=== PATIENT | male | born 1975 | race Caucasian/White ===

== ENCOUNTER 2019-01-08 12:09 | Emergency (ER) | payer OTHER | END 2019-01-08 13:57 | disposition home or self-care (01) | LOC: FER 12:09 ==

== ENCOUNTER 2019-01-11 23:41 | Emergency (ER) | payer OTHER ==
[2019-01-11 23:47] VITALS: BP 149/110; PULSE 94; TEMP 98.3; BMI 28.8
--- NOTE | 2019-01-11 23:50 | PDOC ---
History of Present Illness - General Chief Complaint: Pain Stated Complaint: LEFT THUMB SWELLING Time Seen by Provider: 01/11/19 23:45 History Source: Patient Exam Limitations: No Limitations - History of Present Illness Initial Comments: 01/11/19 23:52 This is a 43-year-old male who had a paronychia that his primary care doctor started him on doxycycline for. Patient was seen and evaluated in this ED on Saturday and the paronychia was incised and drained and he is antibiotics were switched to Keflex and Bactrim. Patient's culture grew out MRSA and he now returns for minimal improvement in his symptoms and IV antibiotics. Patient said he was sent here by his primary care doctor for the IV antibiotics. He denies any fever, chills or any other systemic symptoms. Patient was also given follow-up with the hand surgeon. Allergies: as per nursing notes Past Medical History: none Social history: Lives with family. No smoking. No alcohol. No illicit drugs. Surgical history: None General: No fevers or chills, no weakness, no weight loss HEENT: No change in vision. No sore throat,. No ear pain CardioVascular: no chest discomfort. No shortness of breath Respiratory:No cough, or wheezing. Gastrointestinal: no nausea, vomiting, diarrhea or constipation, No rectal bleeding Genitourinary: No dysuria, hematuria, or frequency Musculoskeletal: No joint or muscle pain or swelling Neurologic: No headache, vertigo, dizziness or loss of consciousness Psychiatric: nor depression Skin: Paronychia of the thumb as per history of present illness Endocrine: no increased thirst or abnormal weight change Allergic: no skin or latex allergy All other systems reviewed and normal GENERAL: The patient is awake, alert, and fully oriented, in no acute distress. HEAD: Normal with no signs of trauma. EYES: Pupils equal, round and reactive to light, extraocular movements intact, sclera anicteric, conjunctiva clear. EXTREMITIES:atraumatic, Normal range of motion, no edema. Left thumb: There is some induration, swelling, increased warmth to the left thumb. There is no palpable collection. NEUROLOGICAL: Normal speech, normal gait. PSYCH: Normal mood, normal affect. SKIN: Warm, Dry, normal turgor, no rashes or lesions noted. Assessment and plan: This is a 43-year-old male with MRSA in a paronychia that was incised and drained 2 days ago and minimally improved. Well sent CBC and give patient an IV dose of vancomycin Past History - Past Medical History Allergies/Adverse Reactions: Allergies Allergy/AdvReac Type Severity Reaction Status Date / Time No Known Allergies Allergy Verified 01/11/19 23:43 Home Medications: Ambulatory Orders Cephalexin [Keflex] 500 mg PO TID #21 capsule 01/08/19 Esomeprazole Magnesium [Nexium 24Hr] 20 mg PO DAILY 01/08/19 Sulfamethoxazole/Trimethoprim [Bactrim Ds -] 1 tab PO BID #14 tablet 01/08/19 COPD: No CHF: No GI Disorders: Yes (GERD) HTN: Yes - Immunization History Immunization Up to Date: (Tetanus December 2018) - Suicide/Smoking/Psychosocial Hx Smoking History: Never smoked Have you smoked in the past 12 months: No Information on smoking cessation initiated: No Hx Alcohol Use: No Drug/Substance Use Hx: No *Physical Exam - Vital Signs Last Vital Signs Temp Pulse Resp BP Pulse Ox 98.3 F 94 H 18 149/110 H 97 01/11/19 23:43 01/11/19 23:43 01/11/19 23:43 01/11/19 23:43 01/11/19 23:43 *DC/Admit/Observation/Transfer Diagnosis at time of Disposition: Paronychia, MRSA (methicillin resistant staph aureus) culture positive - Discharge Dispostion Disposition: HOME Decision to Admit order: No - Referrals Referrals: Alphonso Keen MD [Staff Physician] - - Patient Instructions Additional Instructions: Continue to take antibiotics you're on. Dr. Garcia in the morning and get an appointment as soon as possible to follow- up. To Dr. Keen you were in the emergency department twice over the weekend and we wanted you seen by him as soon as possible. Return to the emergency department immediately with ANY new, persistent or worsening symptoms. Continue any medications as previously prescribed by your physician. You should follow up with your primary doctor as soon as possible regarding today's emergency department visit. . Please make sure your doctor reviews the results of your emergency evaluation. Thank you for coming to the Emergency Department today for your care. It was a pleasure to see you today. Please note that your evaluation is INCOMPLETE until you follow-up with your doctor. - Post Discharge Activity
[2019-01-11] MEDS ORDERED: VANCOMYCIN 1 GM in D5W (PRE-DOCKED) 1,000 MG/250 ML IVPB ONE (23:52)
[2019-01-12] MEDS ORDERED: VANCOMYCIN 1,000 MG VIAL (RESTRICTED TO ID ONLY) ONE (00:13)
[2019-01-12] MEDS ORDERED: KETOROLAC TROMETHAMINE 30 MG/1 ML VIAL IVPUSH ONE (01:03)
[2019-01-12] MEDS ORDERED: KETOROLAC TROMETHAMINE 30 MG/1 ML VIAL ONE (01:08)
[2019-01-12 01:37] LABS: BASO % 0.7 % (0-2.0); EOS % 2.1 % (0-4.5); HEMATOCRIT 45.2 % (35.4-49); HEMOGLOBIN 15.4 GM/dL (11.7-16.9); MCH 33.2 pg (25.7-33.7); MEAN CELL VOLUME 97.5 fl (80-96); MEAN PLT VOLUME 9.9 fl (7.5-11.1); MONO % 10.8 % (3.8-10.2); NEUT % 54.4 % (42.8-82.8); PLATELET COUNT 273 K/MM3 (134-434); RBC 4.64 M/mm3 (4.00-5.60); RDW 13.2 % (11.9-15.9); WHITE BLOOD COUNT 6.7 K/mm3 (4.0-10.0)
[2019-01-12 02:11] LABS: ALBUMIN 4.7 g/dl (3.4-5.0); BILIRUBIN,TOTAL 0.6 mg/dL (0.2-1); CALCIUM 9.4 mg/dL (8.5-10.1); CREATININE 0.8 mg/dL (0.55-1.3); POTASSIUM 3.8 mmol/L (3.5-5.1); TOT PROT 7.9 g/dl (6.4-8.2)
== END 2019-01-12 02:19 | disposition home or self-care (01) ==
LOC: FER 23:41
PROC: 3E03329 Introduction of Other Anti-infective into Peripheral Vein, Percutaneous Approach (ICD-10-PCS; principal; 2019-01-11)
PROC: 3E0333Z Introduction of Anti-inflammatory into Peripheral Vein, Percutaneous Approach (ICD-10-PCS; 2019-01-11)
DX: A49.02 Methicillin resistant Staphylococcus aureus infection, unspecified site (principal); L03.012 Cellulitis of left finger
CPT/HCPCS: 36415; 80053; 85025; 87040; 99282-25

== ENCOUNTER 2020-04-18 20:49 | Emergency (ER) | payer OTHER ==
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
[2020-04-18 21:05] VITALS: BP 148/95; TEMP 98.2; BMI 33.6
[2020-04-18] MEDS ORDERED: ONDANSETRON 4 MG/2 ML VIAL IVPUSH ONE (21:16)
[2020-04-18] MEDS ORDERED: SODIUM CHLORIDE 1,000 ML IV STA (21:16)
[2020-04-18] MEDS ORDERED: ONDANSETRON 4 MG/2 ML VIAL ONE (21:18)
[2020-04-18 21:53] LABS: URINE MUCUS 3+
[2020-04-18 21:54] LABS: BASO % 0.8 % (0-2.0); EOS % 2.3 % (0-4.5); HEMOGLOBIN 16.5 GM/dl (11.7-16.9); LYMPH % 22.1 % (8-40); MCH 34.2 pg (25.7-33.7); MCHC 34.3 g/dl (32.0-35.9); MEAN CELL VOLUME 99.7 fl (80-96); MEAN PLT VOLUME 9.6 fl (7.5-11.1); MONO % 7.7 % (3.8-10.2); NEUT % 67.1 % (42.8-82.8); PLATELET COUNT 258 K/MM3 (134-434); RBC 4.81 M/mm3 (4.00-5.60); RDW 11.5 % (11.9-15.9); WHITE BLOOD COUNT 7.8 K/mm3 (4.0-10.8)
[2020-04-18 21:58] LABS: ALBUMIN 4.9 g/dl (3.4-5.0); BILIRUBIN,TOTAL 1.8 mg/dl (0.2-1); CALCIUM 9.1 mg/dl (8.5-10); CREATININE 0.9 mg/dl (0.55-1.3); POTASSIUM 3.5 mmol/L (3.5-5.1); TOT PROT 8.7 g/dl (6.4-8.2)
[2020-04-18 22:28] VITALS: PULSE 102
--- NOTE | 2020-04-20 13:31 | EKG ---
Test Reason : Blood Pressure : / mmHG Vent. Rate : 104 BPM Atrial Rate : 104 BPM P-R Int : 182 ms QRS Dur : 092 ms QT Int : 360 ms P-R-T Axes : 046 012 048 degrees QTc Int : 473 ms POOR DATA QUALITY, INTERPRETATION MAY BE ADVERSELY AFFECTED SINUS TACHYCARDIA OTHERWISE NORMAL ECG Confirmed by MD GILMER, ANDRES ([id number]) on 04/20/2020 1:31:36 PM Referred By: Confirmed By:ANDRES SCHERER MD
== END 2020-04-18 22:29 | disposition home or self-care (01) ==
LOC: FER 20:49
PROC: 3E033GC Introduction of Other Therapeutic Substance into Peripheral Vein, Percutaneous Approach (ICD-10-PCS; principal; 2020-04-18)
PROC: 3E0337Z Introduction of Electrolytic and Water Balance Substance into Peripheral Vein, Percutaneous Approach (ICD-10-PCS; 2020-04-18)
DX: R11.2 Nausea with vomiting, unspecified (principal)
CPT/HCPCS: 36415; 80053; 81003; 81015; 82550; 82553; 84484; 85025; 93005; 99284-25